=== PATIENT | male | born 1975 | race African-American/Black ===

== ENCOUNTER 2021-01-05 21:45 | Emergency (ER) | payer MEDICAID ==
[~2021-01-05] VITALS: Ht 190.5 cm; Wt 108.9 kg
[2021-01-05 21:53] VITALS: BP 138/86
--- NOTE | 2021-01-05 21:53 | NUR ---
TO BED AMBULATORY
--- NOTE | 2021-01-05 22:00 | NUR ---
RECEIVED IN BED 4 WITH C/O BLE SWELLING, GENERALIZED RASH AND REDNESS OU. PEDAL EDEMA NOTED, 2+ PITTING. SKIN IS WARM AND DRY. OU RED AND TEARING
[2021-01-05] MEDS ORDERED: NACL 0.9% 1,000 ML IV ONE (22:10)
--- NOTE | 2021-01-05 22:22 | NUR ---
EKG IN PROGRESS
--- NOTE | 2021-01-05 22:27 | NUR ---
X-Ray at bedside.
[2021-01-05 22:47] LABS: BASOPHILS # (AUTO) 0.1 K/uL (0.00-0.22); BASOPHILS % (AUTO) 0.9 % (0.0-2.0); EOSINOPHILS # (AUTO) 0.5 K/uL (0-0.4); EOSINOPHILS % (AUTO) 3.8 % (0.0-4.0); MEAN CORPUSCULAR HEMOGLOBIN 17 pg (27-31); MEAN CORPUSCULAR HGB CONC 28 g/dL (33-37); MEAN CORPUSCULAR VOLUME 59.2 fL (80-94); MONOCYTES # (AUTO) 0.8 K/uL (0.8-1.0); MONOCYTES % (AUTO) 6.3 % (1.7-9.3); NEUTROPHILS # (AUTO) 8.2 K/uL (1.8-7.7); PLATELET COUNT (AUTO) 557 K/uL (140-450); RED BLOOD CELL COUNT(AUTO) 4.73 MIL/uL (4.20-6.10); RED CELL DISTRIBUTION WIDTH 38.1 % (11.6-13.7); WHITE BLOOD COUNT (AUTO) 12.6 K/uL (4.8-10.8)
[2021-01-05 22:53] LABS: ALBUMIN 1.5 g/dL (3.4-5.0); ANION GAP 9.2 (8-16); CARBON DIOXIDE 25.7 mmol/L (21-32); CREATININE 1.4 mg/dL (0.6-1.3); POTASSIUM 3.9 mmol/L (3.5-5.1); TOTAL BILIRUBIN 0.2 mg/dL (0.0-1.0)
--- NOTE | 2021-01-05 23:21 | NUR ---
Dr. Ren examining patient.
[2021-01-05] MEDS ORDERED: FUROSEMIDE 40 MG/4 ML VIAL IVP ONE (23:35)
[2021-01-06] MEDS ORDERED: BEN50 PO (00:34)
[2021-01-06] MEDS ORDERED: PRED20TA5 PO (00:34)
[2021-01-06] MEDS ORDERED: ERYT5OIN58 OP (00:34)
[2021-01-06 00:40] VITALS: BP 134/78
--- NOTE | 2021-01-06 00:40 | NUR ---
Patient discharged with v/s stable. Written and verbal after care instructions given and explained. Patient alert, oriented and verbalized understanding of instructions. Ambulatory with steady gait. All questions addressed prior to discharge. ID band removed. Patient advised to follow up with PMD. Rx of Benadryl, erythromycin, and prednisone given. Patient educated on indication of medication including possible reaction and side effects. Opportunity to ask questions provided and answered.
== END 2021-01-06 00:40 | disposition home or self-care (01) ==
LOC: MED 21:45
DX: R60.9 Edema, unspecified (principal); R21 Rash and other nonspecific skin eruption; H10.9 Unspecified conjunctivitis; B96.89 Other specified bacterial agents as the cause of diseases classified elsewhere; R05.9 Cough, unspecified; D64.9 Anemia, unspecified; F17.200 Nicotine dependence, unspecified, uncomplicated
CPT/HCPCS: 36415; 71045; 80053; 83880; 84484; 85025; 93005; 96361; 96374; 99285; J1940; J7030; Q0092